=== PATIENT | male | born 1975 | race African-American/Black ===

== ENCOUNTER 2016-05-28 22:40 | Emergency (ER) | payer BC ==
[2016-05-28 22:49] VITALS: TEMP 98.4; BMI 38.1
[2016-05-28] MEDS ORDERED: NS 1,000 ML IV ONE ×2 (22:51→23:54)
[2016-05-28] MEDS ORDERED: REGULAR INSULIN 100 UNITS/ML - 3 ML VIAL IV ONE (22:55)
--- NOTE | 2016-05-28 22:58 | EDPRACDOC ---
- General Information Chief Complaint: Generalized Weakness Information Source: Patient Mode of Arrival: Car Home Medications: Home Medications Lisinopril [Prinivil] 20 mg PO DAILY 03/29/15 Cephalexin Monohydrate [Keflex] 500 mg PO Q6H #20 cap 03/27/16 Ergocalciferol (Vitamin D2) [Vitamin D] 50,000 units PO FR 03/27/16 Liraglutide [Victoza 0.6 mg/0.1 ml] 1.2 mg SQ DAILY 03/27/16 Metformin HCl [Metformin HCl ER] 500 mg PO DAILY #30 tab 05/29/16 Allergies/Adverse Reactions: Allergies Allergy/AdvReac Type Severity Reaction Status Date / Time shellfish derived Allergy Unknown Hives* Verified 03/27/16 09:49 codeine Allergy Anaphylaxis Verified 03/27/16 10:03 * iodine Allergy Hives* Verified 03/27/16 09:49 propoxyphene napsylate Allergy Anaphylaxis Verified 03/27/16 09:49 [From [facility]] * - History of Present Illness Onset: FEW DAYS Complains Of: Reports: High Blood Sugar, Polyuria, Polydipsia Relevant History: Reports: None Medication Use: Reports: Normal Vomiting - TNTC: No Associated Signs and Symptoms: Reports: None Abdominal Pain Location: Reports: None Abdominal Pain Quality: Reports: None Other History: PT SAID THAT HE HAS BEEN TAKING HIS VICTOZA DIRECTED. PT SAID THAT HE HAS BEEN EATING HIS NORMAL AMTS. HE HAS BEEN VERY THIRSTY AND HAS BEEN URINATING FREQUENTLY. HE CHECKED HIS BS AND IS WAS 500. 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 Denies: Cancer Surgical History: Reports: No Significant History - Family Medical History Reports: Hypertension (mother, sister and father), Diabetes (sister). Denies: Cancer, Stroke, Cardiac Disorders - Social Medical History Smoking Status: Never smoker Social History: Denies: Substance Use Disorder ETOH: None Substance Abuse: None Lives With: Spouse Lives In: Home EDM Review of Systems - Review of Systems ROS Negative Except as Marked: Yes All systems reviewed and were negative except as marked Constitutional: Fatigue, Weakness Endocrine: Excessive Thirst, Polyuria - Physical Exam Constitutional: Alert (Awake), No apparent distress Oriented to: Time, Person, Place Last recorded Vital Signs: Last Vital Signs Temp 98.4 F 05/28/16 22:47 Pulse 110 05/28/16 22:47 Resp 20 05/28/16 22:47 BP 182/87 H 05/28/16 22:47 Pulse Ox 97 05/28/16 22:47 Oxygen Pulse Oxygen Saturation 97 O2 Device Room Air Oxygen Flow Rate Fraction of Inspired Oxygen ( FIO2) - HEENT Head: Normal ( normocephalic) Eye Exam: Normal (PERRL, EOMI, Sclera white) Oropharynx: Membranes Dry ENT EAC: Normal TMJ: Normal Nose: No Symptoms Reported (septum midline) Neck: Normal (FROM, trachea at midline) - Respiratory/Cardiovascular Respiratory: Normal - CTA Cardiovascular: Tachycardia - GI Auscultation: Normal (NABS) Palpation: Normal (Soft,No rebound or guarding, non distended) Tenderness: Non tender Reich's Sign: Negative - Musculoskeletal Back: Normal (Non-Tender) Extremities: Normal (Normal tone, Pulses 2+ No cyanosis or edema, FROM) - Integumentary Skin: Normal, Warm, Dry Lymphatics: Normal (no adenopathy) - Neurologic Memory Impaired: Normal Motor Function: Normal (Normal tone, Pulses 2+ No cyanosis or edema, FROM) Cranial Nerve: Normal (CN II-X11 intact sensation, strength 5/5) Cerebellar: Normal Mood Description: Normal Thought: Coherent Perception: Normal - Results 05/28/16 23:10 05/28/16 23:10 POC Capillary Glucose 399 MG/DL (70-99) H 05/28/16 22:53 Lab Results 05/28/16 22:53 POC Capillary Glucose 399 H - EKG EKG #1 EKG Time: 23:11 -: Yes EKG interpreted by me Rate: bpm: 106 [place]: Normal Rhythm: ST Block: None Hypertrophy: None ST: Normal - Diagnostic Imaging Chest Image interpreted by: Radiologist No acute cardiopulmonary process seen - Additional Information PT SAID THAT DR. ROLLE TOLD HIM NOT TO TAKE IRON IT MADE HIS ANEMIA WORSE IN THE PAST. Decision Time to Discharge: 00:21 - Departure Yes I personally saw and evaluated the patient. Disposition: Home Condition: Fair Final Diagnosis: Poorly controlled type 2 diabetes mellitus, Dehydration, Microcytic anemia Instructions: Diabetes Mellitus Type 2 in Adults (ED) Education/Counseling Given To: Patient, Family Member Education/Counseling Given Regarding: Diagnosis, Treatment, Follow Up Referrals: Paul Vargas MD [Primary Care Provider] - One Week Hernandez Rolle MD [Staff Physician] - One Week Prescriptions: New Metformin HCl [Metformin HCl ER] 500 mg PO DAILY #30 tab No Action Lisinopril [Prinivil] 20 mg PO DAILY Liraglutide [Victoza 0.6 mg/0.1 ml] 1.2 mg SQ DAILY Ergocalciferol (Vitamin D2) [Vitamin D] 50,000 units PO FR Cephalexin Monohydrate [Keflex] 500 mg PO Q6H #20 cap Forms: Patient Discharge Instructions, ED Discharge Instructions Additional Instructions: DIABETIC DIET
--- NOTE | 2016-05-28 23:20 | DIRPT ---
CLINICAL DATA: Acute onset of hyperglycemia and generalized weakness. Initial encounter. EXAM: PORTABLE CHEST 1 VIEW COMPARISON: Chest radiograph performed 05/27/2014 FINDINGS: The lungs are well-aerated and clear. There is no evidence of focal opacification, pleural effusion or pneumothorax. The cardiomediastinal silhouette is borderline normal in size. No acute osseous abnormalities are seen. IMPRESSION: No acute cardiopulmonary process seen. Electronically Signed By: Duy Petersen M.D. On: 05/28/2016 23:17
[2016-05-28 23:26] LABS: AUTOMATED BASOPHIL 0.3 % (0-2); AUTOMATED EOSINOPHIL 4.9 % (0-5); AUTOMATED LYMPH 34.1 % (17-44); AUTOMATED MONOCYTE 6.4 % (3-10); AUTOMATED NEUTROPHIL 54.3 % (45-76); MPV 9.1 fL (7.4-10.4)
[2016-05-28 23:34] LABS: BLOOD UREA NITROGEN 16 MG/DL (9-20); CALCIUM 9.6 MG/DL (8.4-10.2); CALCULATED OSMOLALITY 281 MOs/Kg (270-290); CHLORIDE 97 mEq/L (98-107); SODIUM LEVEL 135 mEq/L (137-146); TOTAL PROTEIN 8.2 G/DL (6.3-8.2)
[2016-05-28 23:37] LABS: PARTIAL THROMB. TIME 26.7 SEC (22-35)
[2016-05-28 23:44] LABS: GLUCOSE 461 MG/DL (70-99)
[2016-05-28 23:46] LABS: LEUKOCYTES/URINE NEG (NEGATIVE); NITRITE/URINE NEG (NEGATIVE); URINE OCCULT BLOOD NEG (NEG/TRACE); WBC/URINE 0-2 (0-2)
[2016-05-28 23:59] VITALS: BP 151/79; PULSE 107
== END 2016-05-29 00:44 | disposition home or self-care (01) ==
LOC: ED 22:40
DX: E11.65 Type 2 diabetes mellitus with hyperglycemia (principal); E86.0 Dehydration; D50.9 Iron deficiency anemia, unspecified
CPT/HCPCS: 36415; 71010; 80053; 81001; 82962; 84484; 85025; 85610; 85730; 93005; 96361; 96374; 99283; J3490

== ENCOUNTER 2016-06-08 07:49 | Emergency (ER) | payer BC ==
[2016-06-08 08:18] VITALS: TEMP 98.1; BMI 36.8
[2016-06-08] MEDS ORDERED: NS 1,000 ML IV ONE ×2 (09:15)
[2016-06-08] MEDS ORDERED: SODIUM CHLORIDE 0.9% 10 ML FLUSH FLUSH PRN (09:15)
[2016-06-08 09:28] LABS: AUTOMATED BASOPHIL 1.1 % (0-2); AUTOMATED EOSINOPHIL 2.9 % (0-5); AUTOMATED LYMPH 25.7 % (17-44); AUTOMATED MONOCYTE 6.8 % (3-10); AUTOMATED NEUTROPHIL 63.5 % (45-76)
--- NOTE | 2016-06-08 09:33 | DIRPT ---
CLINICAL DATA: Left upper extremity numbness EXAM: CHEST 2 VIEW COMPARISON: May 28, 2016 FINDINGS: Lungs are clear. Heart size and pulmonary vascularity are normal. No adenopathy. There is mild upper thoracic levoscoliosis. IMPRESSION: No edema or consolidation. Electronically Signed By: Mathieu Cabrera III, M.D. On: 06/08/2016 09:30
[2016-06-08 09:40] LABS: PARTIAL THROMB. TIME 26.8 SEC (22-35)
[2016-06-08 09:42] LABS: BLOOD UREA NITROGEN 18 MG/DL (9-20); CALCIUM 9.1 MG/DL (8.4-10.2); CALCULATED OSMOLALITY 279 MOs/Kg (270-290); CHLORIDE 100 mEq/L (98-107); CPK TOTAL WITH POSSIBLE MB 371 IU/L (55-170); GLUCOSE 361 mg/dL (70-99); SODIUM LEVEL 136 mEq/L (137-146); TOTAL PROTEIN 7.6 G/DL (6.3-8.2)
[2016-06-08 09:48] LABS: ALL NEG? YES; MDMA* NEG (NEGATIVE); METHAMPHETAMINES NEG (NEGATIVE); OXYCODONE NEG (NEGATIVE)
--- NOTE | 2016-06-08 09:54 | DIRPT ---
CLINICAL DATA: LEFT arm numbness a recent surgery. EXAM: CT HEAD WITHOUT CONTRAST TECHNIQUE: Contiguous axial images were obtained from the base of the skull through the vertex without intravenous contrast. COMPARISON: Head CT 02/17/2013 FINDINGS: No acute intracranial hemorrhage. No focal mass lesion. No CT evidence of acute infarction. No midline shift or mass effect. No hydrocephalus. Basilar cisterns are patent. Paranasal sinuses and mastoid air cells are clear. IMPRESSION: Normal head CT. Electronically Signed By: Brown Celis M.D. On: 06/08/2016 09:52
[2016-06-08 09:58] LABS: CPKMB 2.4 ng/mL (0-4.5)
[2016-06-08 11:03] LABS: LEUKOCYTES/URINE NEG (NEGATIVE); NITRITE/URINE NEG (NEGATIVE); RBC/URINE 0-2 (0-2); URINE OCCULT BLOOD NEG (NEG/TRACE); WBC/URINE 0-2 (0-2)
--- NOTE | 2016-06-08 11:07 | EDPRACDOC ---
- General Information Chief Complaint: Neuro Symptoms/Deficits Stated Complaint: LEFT SHOULDER/ARM NUMBNESS Time Seen by Provider: 06/08/16 08:57 Information Source: Patient Mode Of Arrival: Car Home Medications: Home Medications Lisinopril [Prinivil] 20 mg PO DAILY 03/29/15 Liraglutide [Victoza 0.6 mg/0.1 ml] 1.2 mg SQ DAILY 03/27/16 Metformin HCl [Metformin HCl ER] 500 mg PO DAILY #30 tab 05/29/16 Allergies/Adverse Reactions: Allergies Allergy/AdvReac Type Severity Reaction Status Date / Time shellfish derived Allergy Unknown Hives* Verified 06/08/16 08:18 codeine Allergy Anaphylaxis Verified 06/08/16 08:18 * iodine Allergy Hives* Verified 06/08/16 08:18 propoxyphene napsylate Allergy Anaphylaxis Verified 06/08/16 08:18 [From [facility]] * - History of Present Illness Onset: THIS AM Exact Onset of Symptoms: Known Date Symptoms Started: 06/08/16 Time Symptoms Started: 08:00 HPI: PT PRESENTS DUE TO LEFT ARM WEAKNESS THAT HE STATES OCCURRED THIS AM WHEN HE WOKE UP. STATES HE HAD TINGLING AND NUMBNESS ON THE UPPER PART OF HIS LEFT UPPER ARM. ALSO STATES HE HAS HAD SOME BLURRED VISION, AND CHANGES IN GAIT. PT HAS PMH OF DIABETES AND HTN. STATES HE HAS NOTED AN INCREASE IN HIS GLUCOSE. Symptoms Started: Reports: Gradually Symptoms Description: Constant Weakness: Left: Leg Symptoms: Reports: Numbness, Weak Symptom Severity: Reports: Does not affect activitiy Relevant History of: Reports: DM Associated signs and symptoms:: Reports: None ED Past Medical History - History Reviewed Yes Nurses notes reviewed and agree except as marked - Patient Medical History Cardiac History: Reports: Hypertension, Hypercholesterolemia (states he was given medication but did not take it.) Musculoskeletal History: Reports: Arthritis (surgery on both of knees) Psychological History: Denies: Depression, Substance Use Disorder Systemic History: 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 Denies: Cancer - Family Medical History Reports: Hypertension (mother, sister and father), Diabetes (sister). Denies: Cancer, Stroke, Cardiac Disorders - Social Medical History Smoking Status: Never smoker Social History: Denies: Other Substance Use EDM Review of Systems - Review of Systems ROS Negative Except as Marked: Yes All systems reviewed and were negative except as marked - Physical Exam Constitutional: Alert, Well nourished, Well appearing Oriented to: Time, Person, Place Last recorded Vital Signs: Last Vital Signs Temp 98.1 F 06/08/16 08:10 Pulse 94 06/08/16 09:38 Resp 20 06/08/16 08:10 BP 142/79 06/08/16 09:38 Pulse Ox 95 06/08/16 09:38 Oxygen Pulse Oxygen Saturation 95 O2 Device Oxygen Flow Rate Fraction of Inspired Oxygen ( FIO2) - HEENT Head: Normal ( normocephalic) Eye Exam: Normal (PERRL, EOMI, Sclera white) Oropharynx: Normal (Pharynx:Moist without exudate,Gums-no swelling) Tympanic Membrane: Normal Nose: No Symptoms Reported (septum midline) Neck: Normal (FROM, trachea at midline) - Respiratory/Cardiovascular Respiratory: Normal - CTA (BBS clear to auscultation without adventitious sounds ) Cardiovascular: Tachycardia - GI Auscultation: Normal (NABS) Palpation: Normal (Soft,No rebound or guarding, non distended) Tenderness: Non tender Reich's Sign: Negative Rectal Exam: Deferred - Musculoskeletal Back: Normal (Non-Tender) Extremities: Normal (Normal tone, Pulses 2+ No cyanosis or edema, FROM) - Integumentary Skin: Normal, Warm, Dry Lymphatics: Normal (no adenopathy) - Neurologic Memory Impaired: Normal Motor Function: Normal (Normal tone, Pulses 2+ No cyanosis or edema, FROM) Cranial Nerve: Normal (CN II-X11 intact sensation, strength 5/5) Cerebellar: Normal Mood Description: Normal Perception: Normal NIH Stroke Scale Initial Evaluation Level of Consciousness: Alert LOC- Question: Answers Both Correctly LOC Commands: Both Task Correctly Best Gaze: Normal Visual: No Visual Loss Facial Palsy: Normal Movement Motor Arm LEFT: No Drift Motor Arm RIGHT: No Drift Motor Leg LEFT: No Drift Motor Leg RIGHT: No Drift Limb Ataxia: Absent Sensory: Normal Best Language: No Aphasia Dysarthria: Normal Extinction and Inattention: No Abnormality (Neglect) Score: 0out of42 - Neurologic Orientation: Time, Person, Place Speech: Fluent, Clear Coginitive: Normal, Follows Commands Affect: Normal, Calm Thought: Coherent, Flight of Ideas Perception: Normal - Differential Diagnosis Dehydration, Other - Results 06/08/16 09:20 06/08/16 09:20 WBC 5.3 xk/uL (3.8-10.8) 06/08/16 09:20 RBC 6.07 xM/uL (4.70-6.10) 06/08/16 09:20 Hgb 12.8 g/dL (14.0-18.0) L 06/08/16 09:20 Hct 40.4 % (42-52) L 06/08/16 09:20 MCV 67 fL (80-94) L 06/08/16 09:20 MCH 21.2 pg (27-32) L 06/08/16 09:20 MCHC 31.8 g/dl (33-36) L 06/08/16 09:20 RDW 14.5 % (11.5-14.5) 06/08/16 09:20 Plt Count 178 xk/uL (130-400) 06/08/16 09:20 MPV 9.0 fL (7.4-10.4) 06/08/16 09:20 Neut % (Auto) 63.5 % (45-76) 06/08/16 09:20 Lymph % (Auto) 25.7 % (17-44) 06/08/16 09:20 [place] % (Auto) 6.8 % (3-10) 06/08/16 09:20 Eos % (Auto) 2.9 % (0-5) 06/08/16 09:20 Baso % (Auto) 1.1 % (0-2) 06/08/16 09:20 Absolute Neuts (auto) 3.34 xk/uL (1.7-8.2) 06/08/16 09:20 Absolute Lymphs (auto) 1.33 xk/uL (0.65-4.75) 06/08/16 09:20 Platelet Estimate Norm (NORMAL) Occ giant platelet (NORMAL) 06/08/16 09: 20 Platelet Estimate Norm (NORMAL) Occ giant platelet (NORMAL) 06/08/16 09: 20 RBC Morphology 1+ aniso 1+ hypo 1+ polychrom 1+ poik 1+ ellipto 1+ micro 1+ teardrop 06/08/16 09:20 RBC Morphology 1+ aniso 1+ hypo 1+ polychrom 1+ poik 1+ ellipto 1+ micro 1+ teardrop 06/08/16 09:20 RBC Morphology 1+ aniso 1+ hypo 1+ polychrom 1+ poik 1+ ellipto 1+ micro 1+ teardrop 06/08/16 09:20 RBC Morphology 1+ aniso 1+ hypo 1+ polychrom 1+ poik 1+ ellipto 1+ micro 1+ teardrop 06/08/16 09:20 RBC Morphology 1+ aniso 1+ hypo 1+ polychrom 1+ poik 1+ ellipto 1+ micro 1+ teardrop 06/08/16 09:20 RBC Morphology 1+ aniso 1+ hypo 1+ polychrom 1+ poik 1+ ellipto 1+ micro 1+ teardrop 06/08/16 09:20 RBC Morphology 1+ aniso 1+ hypo 1+ polychrom 1+ poik 1+ ellipto 1+ micro 1+ teardrop 06/08/16 09:20 PT 10.6 SEC (9.2-11.2) 06/08/16 09:20 INR 1.0 06/08/16 09:20 APTT 26.8 SEC (22-35) 06/08/16 09:20 Sodium 136 mEq/L (137-146) L 06/08/16 09:20 Potassium 4.4 mEq/L (3.5-5.1) 06/08/16 09:20 Chloride 100 mEq/L (98-107) 06/08/16 09:20 Carbon Dioxide 26 mMOL/L (22-33) 06/08/16 09:20 Anion Gap 14 mEq/L (8-16) 06/08/16 09:20 BUN 18 MG/DL (9-20) 06/08/16 09:20 Creatinine 0.90 MG/DL (0.66-1.25) 06/08/16 09:20 Estimated GFR (MDRD) > 60 mL/min (>=60) 06/08/16 09:20 Glucose 361 mg/dL (70-99) H 06/08/16 09:20 Calculated Osmolality 279 MOs/Kg (270-290) 06/08/16 09:20 Calcium 9.1 MG/DL (8.4-10.2) 06/08/16 09:20 Total Bilirubin 0.4 MG/DL (0.2-1.3) 06/08/16 09:20 AST 39 IU/L (17-59) 06/08/16 09:20 ALT 73 IU/L (21-72) H 06/08/16 09:20 Alkaline Phosphatase 90 IU/L (38-126) 06/08/16 09:20 Creatine Kinase 371 IU/L (55-170) H 06/08/16 09:20 CK-MB (CK-2) 2.4 ng/mL (0-4.5) 06/08/16 09:20 Troponin I < 0.01 ng/mL (<.04) 06/08/16 09:20 Total Protein 7.6 G/DL (6.3-8.2) 06/08/16 09:20 Albumin 4.2 G/DL (3.5-5.0) 06/08/16 09:20 Urine Opiates Screen Neg (NEGATIVE) 06/08/16 09:35 Ur Oxycodone Screen Neg (NEGATIVE) 06/08/16 09:35 Urine Methadone Screen Neg (NEGATIVE) 06/08/16 09:35 Ur Barbiturates Screen Neg (NEGATIVE) 06/08/16 09:35 Ur Tricyclics Screen Neg (NEGATIVE) 06/08/16 09:35 Ur Phencyclidine Scrn Neg (NEGATIVE) 06/08/16 09:35 Ur Amphetamines Screen Neg (NEGATIVE) 06/08/16 09:35 U Methamphetamines Scrn Neg (NEGATIVE) 06/08/16 09:35 Urine MDMA Screen Neg (NEGATIVE) 06/08/16 09:35 U Benzodiazepines Scrn Neg (NEGATIVE) 06/08/16 09:35 Urine Cocaine Screen Neg (NEGATIVE) 06/08/16 09:35 Ur THC Screen Neg (NEGATIVE) 06/08/16 09:35 Lab Results 06/08/16 06/08/16 06/08/16 09:35 09:20 09:20 WBC 5.3 RBC 6.07 Hgb 12.8 L Hct 40.4 L MCV 67 L MCH 21.2 L MCHC 31.8 L RDW 14.5 Plt Count 178 MPV 9.0 Neut % (Auto) 63.5 Lymph % (Auto) 25.7 [place] % (Auto) 6.8 Eos % (Auto) 2.9 Baso % (Auto) 1.1 Absolute Neuts (auto) 3.34 Absolute Lymphs (auto) 1.33 Platelet Estimate Occ giant platelet RBC Morphology 1+ teardrop PT 10.6 INR 1.0 APTT 26.8 Sodium Potassium Chloride Carbon Dioxide Anion Gap BUN Creatinine Estimated GFR (MDRD) Glucose Calculated Osmolality Calcium Total Bilirubin AST ALT Alkaline Phosphatase Creatine Kinase CK-MB (CK-2) Troponin I Total Protein Albumin Urine Opiates Screen Neg Ur Oxycodone Screen Neg Urine Methadone Screen Neg Ur Barbiturates Screen Neg Ur Tricyclics Screen Neg Ur Phencyclidine Scrn Neg Ur Amphetamines Screen Neg U Methamphetamines Scrn Neg Urine MDMA Screen Neg U Benzodiazepines Scrn Neg Urine Cocaine Screen Neg Ur THC Screen Neg 06/08/16 09:20 WBC RBC Hgb Hct MCV MCH MCHC RDW Plt Count MPV Neut % (Auto) Lymph % (Auto) [place] % (Auto) Eos % (Auto) Baso % (Auto) Absolute Neuts (auto) Absolute Lymphs (auto) Platelet Estimate RBC Morphology PT INR APTT Sodium 136 L Potassium 4.4 Chloride 100 Carbon Dioxide 26 Anion Gap 14 BUN 18 Creatinine 0.90 Estimated GFR (MDRD) > 60 Glucose 361 H Calculated Osmolality 279 Calcium 9.1 Total Bilirubin 0.4 AST 39 ALT 73 H Alkaline Phosphatase 90 Creatine Kinase 371 H CK-MB (CK-2) 2.4 Troponin I < 0.01 Total Protein 7.6 Albumin 4.2 Urine Opiates Screen Ur Oxycodone Screen Urine Methadone Screen Ur Barbiturates Screen Ur Tricyclics Screen Ur Phencyclidine Scrn Ur Amphetamines Screen U Methamphetamines Scrn Urine MDMA Screen U Benzodiazepines Scrn Urine Cocaine Screen Ur THC Screen - EKG EKG #1 EKG Time: 08:16 -: Yes EKG interpreted by me Rate: bpm: 105 [place]: Normal Rhythm: ST Block: None Hypertrophy: None ST: Normal Decision Time to Discharge: 11:13 - Departure Disposition: Home Condition: Stable Final Diagnosis: Hyperglycemia due to type 2 diabetes mellitus Qualifiers: Diabetes mellitus terminal worker insulin use: unspecified terminal worker insulin use status Qualified Code(s): E11.65 - Type 2 diabetes mellitus with hyperglycemia Instructions: Managing Diabetes During Sick Days (ED), Diabetes and Exercise Education/Counseling Given To: Patient Education/Counseling Given Regarding: Diagnosis, Treatment, Prognosis, Follow Up Referrals: Kirill Lopez II, MD [Staff Physician] - One Week Prescriptions: No Action Lisinopril [Prinivil] 20 mg PO DAILY Liraglutide [Victoza 0.6 mg/0.1 ml] 1.2 mg SQ DAILY Metformin HCl [Metformin HCl ER] 500 mg PO DAILY #30 tab Forms: Patient Discharge Instructions, ED Discharge Instructions Additional Instructions: PLEASE MAKE A FOLLOW UP APPOINTMENT NEXT WEEK.
[2016-06-08 11:31] VITALS: BP 136/84; PULSE 91
== END 2016-06-08 11:35 | disposition home or self-care (01) ==
LOC: ED 07:49
DX: E11.65 Type 2 diabetes mellitus with hyperglycemia (principal)
CPT/HCPCS: 36415; 70450; 71020; 80053; 80307; 81001; 82550; 82553; 84484; 85025; 85610; 85730; 93005; 96360; 96361; 99284